=== PATIENT | female | born 1995 | race African-American/Black ===

== ENCOUNTER 2016-07-19 22:54 | Emergency (ER) | payer MEDICAID ==
[2016-07-19 22:55] VITALS: BMI 38.7
[2016-07-19 23:00] VITALS: BP 144/79; PULSE 104; TEMP 98.9
== END 2016-07-20 01:01 | disposition left against medical advice (07) ==
LOC: ED 22:54
DX: R05 Cough (principal)
CPT/HCPCS: 99282